=== PATIENT | male | born 1985 | race Caucasian/White ===

== ENCOUNTER 2022-10-04 21:25 | Emergency (ER) | payer MEDICAID ==
[~2022-10-04] VITALS: Ht 213.4 cm; Wt 95.5 kg
[2022-10-04] MEDS ORDERED: ibuprofen tablet 400 MG TABLET PO ONE (22:10)
[2022-10-04] MEDS ORDERED: CEPH-585 PO (22:12)
[2022-10-04] MEDS ORDERED: CLOT12CR TOP (22:12)
[2022-10-04 22:14] VITALS: BP 137/80
== END 2022-10-04 22:28 | disposition home or self-care (01) ==
LOC: ER 21:25
DX: L03.116 Cellulitis of left lower limb (principal); M79.672 Pain in left foot; F17.200 Nicotine dependence, unspecified, uncomplicated; F12.90 Cannabis use, unspecified, uncomplicated; F15.20 Other stimulant dependence, uncomplicated
CPT/HCPCS: 73630; 99283